=== PATIENT | male | born 1995 | race Caucasian/White ===

== ENCOUNTER 2016-09-30 22:01 | Emergency (ER) | payer OTHER ==
[~2016-09-30] VITALS: Ht 170.2 cm; Wt 68.0 kg
[2016-09-30 22:20] LABS: POINT-OF-CARE METER ID UU13113702
[2016-09-30 22:40] LABS: HEMATOCRIT 33.2 % (38.0-50.0); MCH 28.3 PG (29.0-34.0); MCHC 34.3 G/DL (30.0-36.0); MCV 82.4 FL (86-99); MEAN PLAT.VOLUME 11.2 uM^3 (9.0-12.4); PLATELET COUNT 175 K/uL (156-360); RBC DIS.WIDTH-CV 12.4 % (11.8-14.6); RBC DIS.WIDTH-SD 37.3 % (39-53); RED BLOOD COUNT 4.03 M/uL (4.00-5.50); WHITE BLOOD COUNT 11.1 K/uL (4.1-10.2)
[2016-09-30 22:51] LABS: CHLORIDE 104 mEq/L (99-109); POTASSIUM 3.5 mEq/L (3.7-5.4); SODIUM 138 mEq/L (136-147)
[2016-09-30 22:53] LABS: GLUCOSE 88 mg/dL (70-99)
[2016-09-30 22:54] LABS: ANION GAP 11 MEQ/L (2-14)
[2016-09-30 22:57] LABS: GFR ESTIMATE (CALCULATED) > 59 mL/min/
[2016-09-30 22:58] LABS: UREA NITROGEN (BUN) 15 mg/dL (9-23)
[2016-09-30 23:17] LABS: INFLUENZA A VIRAL ANTIGEN NEGATIVE; INFLUENZA B VIRAL ANTIGEN NEGATIVE
[2016-10-01 00:29] VITALS: BP 136/67
== END 2016-10-01 00:32 ==
LOC: EME 22:01 → EDBD 22:01 → EME 22:01
PROVIDERS: Emergency Medicine
DX: R50.9 Fever, unspecified (principal); J45.909 Unspecified asthma, uncomplicated; B19.20 Unspecified viral hepatitis C without hepatic coma; Z87.891 Personal history of nicotine dependence
CPT/HCPCS: 71020; 80048; 81003; 82948; 85027; 87502; 99281; 99284